=== PATIENT | male | born 1955 | race Caucasian/White ===

== ENCOUNTER → 2017-09-17 | Outpatient (CLI) | payer MEDICAID ==
[~2017-09-17] MED LIST: HYDROCHLOROTHIA25 M1 PO; NORCO 325 MG-51 TAB PO; VENTOLIN4 MG OR
[2017-09-17 09:37] LABS: HEMOGLOBIN 14.1 g/dL (14.1-18.0); LYMPH # 1.5 K/mm3 (0.7-4.5)
[2017-09-17 11:22] LABS: BUN 17 mg/dL (7-18)
[2017-09-17 11:28] LABS: GFR (ESTIMATED) 61 ML/MIN (>60)
== END ==
LOC: LAB 08:32
PROVIDERS: Internal Medicine Hematology & Oncology
DX: C34.32 Malignant neoplasm of lower lobe, left bronchus or lung (principal)